=== PATIENT | female | born 1985 | race American Indian/Alaskan Native ===

== ENCOUNTER 2017-11-04 11:16 | Emergency (ER) | payer BC ==
[2017-11-04 11:25] VITALS: BMI 33.3
[2017-11-04] MEDS ORDERED: Iohexol 240 (50 ml) PO STA (12:11)
[2017-11-04 12:14] LABS: BASO # 0.1 K/uL (0.0-0.2); BASO % 1.1 % (0.0-2.0); EOS # 0.1 K/uL (0.0-0.7); EOS % 1.8 % (0.0-4.0); HEMOGLOBIN 12.3 g/dL (11.0-16.0); LYMPH % 41.2 % (20.0-40.0); MEAN CELL VOLUME 87.1 fL (81.0-99.0); MEAN CORPUSCULAR HEMOGLOBIN 29.6 pg (27.0-31.0); MEAN PLATELET VOLUME 8.9 fL (7.2-11.7); MONO # 0.5 K/uL (0.0-0.8); MONO % 10.7 % (0.0-10.0); NEUT # 2.2 K/uL (1.8-7.0); NEUT % 45.2 % (50.0-75.0); NRBC % 0.1 % (0.0-2.0); RBC 4.14 Mil/uL (3.80-5.20); RED CELL DISTRIBUTION WIDTH 14.8 % (11.5-14.5); WHITE BLOOD COUNT 4.9 K/uL (4.8-10.8)
[2017-11-04] MEDS ORDERED: Iohexol 240 (50 ml) ONE (12:20)
[2017-11-04 12:26] LABS: ALB/GLOB RATIO 1.3 (1.0-2.1); ALBUMIN 4.3 g/dL (3.5-5.0); ALT/SGPT 26 U/L (9-52); AST/SGOT 22 U/L (14-36); BLOOD UREA NITROGEN 15 mg/dL (7-17); GFR NON-AFRICAN AMERICAN > 60; LIPASE 55 U/L (23-300)
[2017-11-04] MEDS ORDERED: Iodixanol 320 MG/ML 100 ML BOTTLE IV ONE (12:38)
--- NOTE | 2017-11-04 12:46 | C.PDOC ---
History Of Present Illness 32-year-old female, presents to the emergency department with complaints of right upper quadrant abdominal pain, intermittently for the past several months. Over the past four days, patient notes symptoms have become more constant and associated with nausea, and an episode of loose stool. She denies fever, hx of abdominal surgeries, GI bleed, chest pain, shortness of breath, or any other associated symptoms. No other complaints at this time. Time Seen by Provider: 11/04/17 11:34 Chief Complaint (Nursing): Abdominal Pain History Per: Patient History/Exam Limitations: no limitations Current Symptoms Are (Timing): Still Present Severity: Moderate Past Medical History Reviewed: Historical Data, Nursing Documentation, Vital Signs Vital Signs: Last Vital Signs Temp 98.7 F 11/04/17 11:25 Pulse 78 11/04/17 11:25 Resp 18 11/04/17 11:25 BP 120/80 11/04/17 11:25 Pulse Ox 97 11/04/17 12:50 - Medical History PMH: Anemia, Asthma Family History: States: No Known Family Hx - Social History Hx Tobacco Use: No Hx Alcohol Use: Yes Hx Substance Use: No - Immunization History Hx Tetanus Toxoid Vaccination: No Hx Influenza Vaccination: No Hx Pneumococcal Vaccination: No Review Of Systems Constitutional: Negative for: Fever, Chills Cardiovascular: Negative for: Chest Pain Respiratory: Negative for: Shortness of Breath Gastrointestinal: Positive for: Abdominal Pain Musculoskeletal: Negative for: Back Pain Skin: Negative for: Rash Neurological: Negative for: Weakness, Numbness, Headache, Dizziness Physical Exam - Physical Exam Appears: Non-toxic, No Acute Distress Skin: Normal Color, Warm, Dry, No Rash Head: Atraumatic, Normacephalic Eye(s): bilateral: Normal Inspection Nose: Normal Oral Mucosa: Moist Lips: Normal Appearing Neck: Normal ROM Chest: Symmetrical Cardiovascular: Rhythm Regular, No Murmur Respiratory: Normal Breath Sounds, No Accessory Muscle Use Gastrointestinal/Abdominal: Soft, Tenderness (mid, inconsistent), No Guarding, No Rebound Extremity: Normal ROM, No Deformity, No Swelling Neurological/Psych: Oriented x3, Normal Speech, Normal Motor Gait: Steady ED Course And Treatment - Laboratory Results Result Diagrams: 11/04/17 12:09 11/04/17 12:09 O2 Sat by Pulse Oximetry: 97 Pulse Ox Interpretation: Normal (RA) Medical Decision Making Medical Decision Making: Plan: * CT Ab/Pel * Bloodwork * Chest X-Ray * Toradol, Pepcid, Zofran * UA * Reassess and Disposition Disposition - Disposition Disposition Time: 13:06 Condition: FAIR Forms: [facility] (Finnish) - Clinical Impression Clinical Impression: Abdominal wall pain - Scribe Statement The provider has reviewed the documentation as recorded by the Scribe (Lourdes Espinoza) All medical record entries made by the Scribe were at my direction and personally dictated by me. I have reviewed the chart and agree that the record accurately reflects my personal performance of the history, physical exam, medical decision making, and the department course for this patient. I have also personally directed, reviewed, and agree with the discharge instructions and disposition. Physician Patient Turnover Patient Signed Over To: Jessica Newton Handoff Comments: Pending CT scan and re-eval
[2017-11-04 12:55] LABS: HCG,QUALITATIVE URINE NEGATIVE (NEGATIVE); SQUAMOUS EPITHIAL 4 /hpf (0-5); URINE BILIRUBIN NEGATIVE (NEGATIVE); URINE BLOOD NEGATIVE (NEGATIVE); URINE CLARITY Clear (Clear); URINE COLOR Yellow (YELLOW); URINE GLUCOSE (UA) NORMAL (Normal); URINE LEUKOCYTE ESTERASE TRACE Leu/uL (Negative); URINE PROTEIN NEGATIVE (NEGATIVE); URINE UROBILINOGEN NORMAL mg/dL (0.2-1.0)
[2017-11-04 13:41] VITALS: O2SAT 100
--- NOTE | 2017-11-04 14:00 | RAD ---
Date of service: 11/04/2017 PROCEDURE: CHEST RADIOGRAPH, 1 VIEW HISTORY: epigas abd pain COMPARISON: None available. FINDINGS: LUNGS: Clear. PLEURA: No pneumothorax or pleural fluid seen. CARDIOVASCULAR: Cardiomegaly not excluded. No pulmonary vascular congestion. OSSEOUS STRUCTURES: No significant abnormalities. VISUALIZED UPPER ABDOMEN: Normal. OTHER FINDINGS: None. IMPRESSION: No active pulmonary disease identified. Mild cardiomegaly not completely excluded though the appearance of the cardiac silhouette may be prominent related to frontal technique.
--- NOTE | 2017-11-04 15:06 | CT ---
Date of service: 11/04/2017 PROCEDURE: CT Abdomen and Pelvis with contrast HISTORY: Right sided abd pain, nausea, diarrhea COMPARISON: None. TECHNIQUE: CT scan of the abdomen and pelvis was performed after administration of intravenous contrast. Oral contrast was not administered. Coronal and sagittal reformatted images were obtained. Contrast dose: Radiation dose: Total exam DLP = 614.18 mGy-cm. This CT exam was performed using one or more of the following dose reduction techniques: Automated exposure control, adjustment of the mA and/or kV according to patient size, and/or use of iterative reconstruction technique. FINDINGS: LOWER THORAX: The visualized lungs are clear. LIVER: Normal in size with homogeneous enhancement. Mild fatty liver. No gross lesion or ductal dilatation. GALLBLADDER AND BILE DUCTS: No calcified gallstones. PANCREAS: Normal in size with homogeneous enhancement. No gross lesion or ductal dilatation. SPLEEN: Normal in size and appearance. ADRENALS: No discrete nodule. KIDNEYS AND URETERS: Normal in size with homogeneous enhancement. No hydronephrosis. No solid mass. VASCULATURE: No aortic aneurysm. BOWEL: There is apparent mild circumferential mural thickening in the gastric antrum. The small bowel loops are normal in caliber. There is segmental narrowing and mild circumferential mural thickening in the terminal ileum and at the ileocecal junction. APPENDIX: Normal appendix. PERITONEUM: No free fluid. No free air. LYMPH NODES: No enlarged lymph nodes. BLADDER: Unremarkable. REPRODUCTIVE: The uterus is normal in size. BONES: No acute fracture. Within normal limits for the patient's age. OTHER FINDINGS: None. IMPRESSION: 1. Apparent mild circumferential mural thickening in the terminal ileum and at the ileocecal junction with mild narrowing of the terminal ileum is nonspecific and could be related to nonspecific infectious/ inflammatory enteritis. Crohn's disease is a consideration given this location. No evidence for bowel obstruction. Clinical follow-up is advised. 2. Apparent circumferential mural thickening in the gastric antrum could be related to underdistention however nonspecific gastritis cannot be excluded. 3. No CT evidence for acute appendicitis.
[2017-11-04 15:41] VITALS: BP 108/70; PULSE 64; RESP 18; TEMP 98.5
== END 2017-11-04 15:42 | disposition home or self-care (01) ==
LOC: C.ER 11:16
DX: R10.11 Right upper quadrant pain (principal)
CPT/HCPCS: 36415; 71045; 74177; 80053; 81001; 83690; 84703; 85025; 96374; 96375; 99285; J1885; J2405; Q9966; Q9967

== ENCOUNTER 2017-11-29 06:24 | Day surgery (SDC) | payer BC ==
[2017-11-29] MEDS ORDERED: Propofol 10 mg/ml Inj (20 ML) ONE ×2 (07:56→07:57)
[2017-11-29] MEDS ORDERED: Lactated Ringer's 1,000 ML IV ONE (08:10)
[2017-11-29 08:46] VITALS: TEMP 98
[2017-11-29 09:47] VITALS: BP 116/74; PULSE 67; RESP 14; O2SAT 98
== END 2017-11-29 09:30 | disposition home or self-care (01) ==
LOC: C.ENDO 06:24
PROVIDERS: ATTEND Internal Medicine Gastroenterology
DX: R10.11 Right upper quadrant pain (principal); R93.3 Abnormal findings on diagnostic imaging of other parts of digestive tract; K44.9 Diaphragmatic hernia without obstruction or gangrene; K29.70 Gastritis, unspecified, without bleeding; K64.8 Other hemorrhoids
CPT/HCPCS: 43239; 45380; 84703; 88305; 88313; 88342; J2001; J2704; J7120